=== PATIENT | male | born 1985 | race Two or more races ===

== ENCOUNTER 2023-06-06 09:54 | Emergency (ER) | payer MEDICAID ==
[~2023-06-06] VITALS: Ht 182.9 cm; Wt 90.7 kg
[2023-06-06 09:59] VITALS: O2SAT 100
[2023-06-06 11:18] LABS: EOSINOPHILS % 1.5 % (0.0-5.0); HEMATOCRIT. 48.1 % (42.0-52.0); HEMOGLOBIN. 16.3 g/dL (14.0-18.0); LYMPHOCYTES % 16.6 % (20.0-50.0); MEAN CORPUSCULAR HEMOGLOBIN 30.1 pg (28.0-32.0); MEAN CORPUSCULAR HGB CONC 33.9 g/dL (31.0-37.0); MEAN CORPUSCULAR VOLUME 88.8 fL (80.0-94.0); MEAN PLATELET VOLUME 7.8 fl (7.4-10.4); MONOCYTES % 7.5 % (2.0-8.0); NEUTROPHILS % 73.4 % (40.0-76.0); PLATELET 283 x1000/uL (130-400); RED BLOOD CELL COUNT 5.41 mill/uL (4.7-6.1); RED CELL DISTRIBUTION WIDTH 13.3 % (11.6-14.6); WHITE BLOOD COUNT 11.3 x1000/uL (4.5-11.0)
[2023-06-06 11:23] LABS: CHLORIDE 105 mEq/L (98-107); POTASSIUM 4.1 mEq/L (3.5-5.1); SODIUM 138 mEq/L (136-145)
[2023-06-06 11:24] LABS: CALCIUM 9.9 mg/dL (8.7-10.4); CARBON DIOXIDE 26 mEq/L (21-32)
[2023-06-06 11:29] LABS: CREATININE 0.9 mg/dL (0.6-1.3); GLUCOSE 94 mg/dL (70-105); UREA NITROGEN BLOOD 12 mg/dL (9-23)
[2023-06-06] MEDS: ACETAMINOPHEN 500MG TABLET PO ONE (11:30)
[2023-06-06] MEDS: IBUPROFEN 600MG TABLET PO ONE (11:30)
[2023-06-06 11:31] LABS: ALANINE AMINOTRANSFERASE 45 IU/L (10-49); ALBUMIN 5.4 g/dL (3.2-4.8); ASPARTATE AMINOTRANSFERASE 35 IU/L (<34); BILIRUBIN TOTAL 0.8 mg/dL (0.1-1.0)
[2023-06-06] MEDS ORDERED: IOHEXOL-300 100 ML BOTTLE ONE (13:35)
[2023-06-06] MEDS ORDERED: AMOX1TAB16 MT (14:21)
[2023-06-06] MEDS ORDERED: IBUP-2030 MT (14:21)
[2023-06-06 14:40] VITALS: BP 121/75; PULSE 66; RESP 17; TEMP 98.5
== END 2023-06-06 14:58 | disposition home or self-care (01) ==
LOC: ER 09:54
DX: K04.7 Periapical abscess without sinus (principal)
CPT/HCPCS: 80053; 85025; 36415; 70487; 99285; Q9967; Z7610 ×2